=== PATIENT | female | born 1995 | race Caucasian/White ===

== ENCOUNTER 2021-12-18 02:09 | Emergency (ER) | payer SELFPAY ==
[~2021-12-18] VITALS: Ht 165.1 cm; Wt 81.6 kg
[2021-12-18 02:20] VITALS: BP_SYST 128
[2021-12-18] MEDS ORDERED: ONDANSETRON 4 MG ODT TAB PO ONE (03:15)
[2021-12-18 03:38] VITALS: BP_SYST 125
== END 2021-12-18 03:38 | disposition home or self-care (01) ==
LOC: SED 02:09
DX: Z02.89 Encounter for other administrative examinations (principal); Z88.5 Allergy status to narcotic agent; Z88.6 Allergy status to analgesic agent
CPT/HCPCS: 99283; Q0162